=== PATIENT | male | born 1990 | race Caucasian/White ===

== ENCOUNTER 2023-12-27 20:04 | Emergency (ER) | payer BC, SELFPAY ==
[2023-12-27 20:18] VITALS: BP 131/76
--- NOTE | 2023-12-27 23:36 | ED.GENMED ---
History of Present Illness
General
Chief Complaint: Skin Surface Trauma
Source: patient
Exam Limitations: none
Time Seen by Provider: 12/27/23 22:25
Nursing documentation reviewed up to this point in time: agreed with
Travel History
Have you had any contact with someone who has COVID-19?: No
Do you have any symptoms of coronavirus? Fever > 100 degrees, chills, cough, shortness of breath, sore throat, loss of taste or smell, muscle aches, or headache?: No
History of Present Illness
History of Present Illness:
33-year-old male presents to the ER for evaluation of facial laceration. Patient reports prior to arrival at work he was mad and punched plexiglass which broke and sliced his right forehead above his right eyebrow. He complains abrasions to hands
no other injuries. He he is unsure of his last tetanus.
Past History
Past History
ED Past Medical History: None
ED Past Surgical History: Other ([place] teeth)
Social History
Tobacco: Smoker
Alcohol: None
Drug: Cocaine and Narcotics
Personal: Single
Review of Systems
Review of Systems
Allergies reviewed?: Yes
All Other Systems: ROS reviewed and negative except as documented in HPI and ROS
Constitutional: Reports no symptoms; Denies fever, fatigue or chills
EENT: Reports no symptoms
Skin: Reports other (Skin laceration to right forehead/eyebrow)
Neurological: Reports no symptoms
Psychiatric: Reports no symptoms
Phy Exam
General Physical Exam
General Presentation: no apparent distress
General age: appears stated age
General Skin: warm and dry
General Habitus: normal
General Mental: alert
General Hydration: appears well hydrated
Eye Exam
Eye Exam: PERRL and EOMI
Eye Exam General: PERRL: bilateral and EOM intact: bilateral
Pupil Exam: Bilateral: round and reactive
Neurological Exam
Neurological Exam: alert and oriented x3
Musculoskeletal Exam
Musculoskeletal Exam: full ROM
Skin Exam
Skin Exam: normal color, warm/dry and other (Patient with 4.5 vertically situated full-thickness laceration to subcutaneous tissue to right forehead extending into right eyebrow no foreign body )
Psychiatric Exam
Psychiatric Exam: normal mood/affect
Course
Vital Signs
Initial and Last Documented VS:
Initial Vital Signs
Temp Pulse Resp BP Pulse Ox
98.5 F 110 20 131/76 94
12/27/23 20:18 12/27/23 20:18 12/27/23 20:18 12/27/23 20:18 12/27/23 20:18
Last Documented Vital Signs
Temp Pulse Resp BP Pulse Ox
98.5 F 110 20 131/76 94
12/27/23 20:18 12/27/23 20:18 12/27/23 20:18 12/27/23 20:18 12/27/23 20:18
Procedures
Laceration Closure
Right Face:
Status of Wound: clean
Size of Wound in cm: 4.5
Description of Wound Edges: sharp
Preparation: cleaned with saline
Anesthesia: 1% Lidocaine with epi
Revision/Debridement: routine- no revision
Type of Closure: single layer closure and interrupted sutures
Skin Closure Material: 6-0 prolene
Number of sutures: 10
MDM/Problems Addressed
Differential Diagnosis Includes:
Not limited to laceration
MDM/Problems Addressed:
Patient with a simple laceration to right forehead vertically situated extending into eyebrow. Laceration is through to subcutaneous tissue only. Area was irrigated with copious amounts normal saline; no foreign body sutured as documented.
Tetanus updated
*Pulse Oximetry
Patient hypoxic: no
*Critical Care Note
Total Time (30-74mins, 75-104mins- exclusive of procedures): Not Applicable
ED Attending Note
-
Portions of this chart may have been created with voice recognition software.� Occasional wrong word or��sound alike� substitutions may have occurred due to the inherent limitations of voice recognition software.
Discharge Plan
Departure
Patient Disposition: Home (Routine Discharge)
Date of Disposition: 12/27/23
Time of Disposition: 23:51
Patient with high blood pressure during this ER visit?: No
Discharge Problem:
Laceration
Instructions: Wound Care (DC), Laceration Repair With Stitches (DC)
Referrals:
Emmie Vargas MD [Family Provider] -
Activity Restrictions/Additional Instructions:
Keep wound clean and dry for 24 hours after 24 hours wash with soap and water pat dry and apply small layer of antibiotic ointment to the area. See family doctor in 2 days for wound check and sutures are to be removed in 5 days. Return if any
signs of infection.
As discussed be sure that area does not get sunburned as this will darken the wound.
For the first week after sutures are removed keep covered so wound does not get sunburn. After 1 week you may apply sunscreen to the area. You may also use [id number] antiscar cream such as Mederma.
Interventions
Interventions:
*Risk Screen - Suicide Last Done: 12/27/23 20:18
*General Assessment Last Done: 12/27/23 20:18
ED- Fall Risk Assessment Last Done: 12/27/23 20:18
*ED COVID-19 Vaccine History Last Done: 12/27/23 20:18
Discharge Date and Time
Print Language: HUNGARIAN
[2023-12-27] MEDS: ADACEL 0.5 ML IM (23:58)
[2023-12-28 00:07] VITALS: BP 124/88
== END 2023-12-28 00:09 | disposition home or self-care (01) ==
LOC: EMR 20:04
PROVIDERS: EMERGENCY PHYSICIAN Emergency Medicine; FAMILY PHYSICIAN Internal Medicine
DX: S01.81XA Laceration without foreign body of other part of head, initial encounter (principal); S60.511A Abrasion of right hand, initial encounter; S60.512A Abrasion of left hand, initial encounter; W22.8XXA Striking against or struck by other objects, initial encounter; F17.200 Nicotine dependence, unspecified, uncomplicated; Z23 Encounter for immunization
CPT/HCPCS: 99284; 12052; 90471; 90715